=== PATIENT | male | born 1965 | race American Indian/Alaskan Native ===

== ENCOUNTER 2017-12-27 12:42 | Emergency (ER) | payer OTHER ==
[2017-12-27 13:46] VITALS: BP 150/95
--- NOTE | 2017-12-27 16:23 | Emergency Department Report ---
ED Animal Bite HPI - General Chief Complaint: Animal Bite Stated Complaint: DOG BITE Time Seen by Provider: 12/27/17 16:02 Source: patient Mode of arrival: Ambulatory Limitations: No Limitations - History of Present Illness Initial Comments: Patient is a 52-year-old male who is presenting status post dog bite. Patient states that he has a new neighbor who owns a pit bull. This is the dog bit the patient.. Patient states the dog was not provoked and did not seem overly aggressive until the dog bit to the patient. There are 2 superficial bites to the right lower extremity. -: This morning Animal: dog Animal Control Notified: Yes Description: household pet Mechanism: bite Pain Description: burning, constant Severity scale (0 -10): 5 Associated Symptoms: none Treatments Prior to Arrival: wound dressing(s), other (patient states the dog is being quarantined by animal control) - Related Data Previous Rx's Medication Instructions Recorded Last Taken Type Amoxicillin/Potassium Clav 1 each PO BID #14 tablet 12/27/17 Unknown Rx [Augmentin 875-125 Tablet] Ibuprofen [Motrin] 600 mg PO Q8H PRN #20 tablet 12/27/17 Unknown Rx traMADol [Ultram] 50 mg PO Q6HR PRN #12 tablet 12/27/17 Unknown Rx Allergies Allergy/AdvReac Type Severity Reaction Status Date / Time No Known Allergies Allergy Unverified 12/27/17 13:46 ED Review of Systems ROS: Stated complaint: DOG BITE Other details as noted in HPI Comment: All other systems reviewed and negative ED Past Medical Hx - Past Medical History Previous Medical History?: Yes Hx Hypertension: Yes - Social History Smoking Status: Never Smoker Substance Use Type: None - Medications Home Medications: Home Medications Medication Instructions Recorded Confirmed Last Taken Type Amoxicillin/Potassium Clav 1 each PO BID #14 tablet 12/27/17 Unknown Rx [Augmentin 875-125 Tablet] Ibuprofen [Motrin] 600 mg PO Q8H PRN #20 tablet 12/27/17 Unknown Rx traMADol [Ultram] 50 mg PO Q6HR PRN #12 tablet 12/27/17 Unknown Rx ED Physical Exam - General Limitations: No Limitations General appearance: alert, in no apparent distress - Head Head exam: Present: atraumatic, normocephalic - Eye Eye exam: Present: normal appearance - ENT ENT exam: Present: mucous membranes moist - Neck Neck exam: Present: normal inspection - Respiratory Respiratory exam: Present: normal lung sounds bilaterally. Absent: respiratory distress - Cardiovascular Cardiovascular Exam: Present: regular rate, normal rhythm. Absent: systolic murmur, diastolic murmur, rubs, gallop - GI/Abdominal GI/Abdominal exam: Present: soft, normal bowel sounds - Rectal Rectal exam: Present: deferred - Extremities Exam Extremities exam: Present: normal inspection, other (patient has 2 superficial elongated gashes in his left calf that did not appear to require suturing.) - Back Exam Back exam: Present: normal inspection - Neurological Exam Neurological exam: Present: alert, oriented X3 - Psychiatric Psychiatric exam: Present: normal affect, normal mood - Skin Skin exam: Present: warm, dry, intact, normal color. Absent: rash ED Course Vital Signs 12/27/17 13:43 Temperature 97.7 F Pulse Rate 67 Respiratory 18 Rate Blood Pressure 150/95 O2 Sat by Pulse 100 Oximetry - Reevaluation(s) Reevaluation #1: 12/27/17 16:20 Patient is 52-year-old -[place] male who is presenting status post dog bite. The wounds although elongated are superficial. Does appear to be of the 2 front canine teeth may have dragged against the patient's scan causing these injuries. There are no puncture wounds present. The patient will be given a tetanus shot and will be started on antibiotics and will be discharged home. Critical care attestation.: If time is entered above; I have spent that time in minutes in the direct care of this critically ill patient, excluding procedure time. ED Disposition Clinical Impression: Dog bite Qualifiers: Encounter type: initial encounter Qualified Code(s): W54.0XXA - Bitten by dog, initial encounter Disposition: DC-01 TO HOME OR SELFCARE Is pt being admited?: No Does the pt Need Aspirin: No Condition: Stable Instructions: Animal Bite (ED) Prescriptions: Amoxicillin/Potassium Clav [Augmentin 875-125 Tablet] 1 each PO BID #14 tablet Ibuprofen [Motrin] 600 mg PO Q8H PRN #20 tablet PRN Reason: Pain traMADol [Ultram] 50 mg PO Q6HR PRN #12 tablet PRN Reason: Pain Referrals: [facility] [Other] - 3-5 Days
[2017-12-27] MEDS ORDERED: BOOSTRIX IM ONE (16:25)
== END 2017-12-27 16:45 | disposition home or self-care (01) ==
LOC: ED 12:42
DX: S80.871A Other superficial bite, right lower leg, initial encounter (principal); I10 Essential (primary) hypertension; W54.0XXA Bitten by dog, initial encounter; Y93.89 Activity, other specified; Y92.89 Other specified places as the place of occurrence of the external cause; Y99.8 Other external cause status
CPT/HCPCS: 90471; 90715; 99282